=== PATIENT | female | born 1985 | race African-American/Black ===

== ENCOUNTER 2020-11-17 13:18 | Emergency (ER) | payer OTHER ==
[2020-11-17 13:35] VITALS: BMI 20.7
[2020-11-17 14:58] LABS: BASO % 0.4 % (0-2.0); EOS % 2.6 % (0-4.5); HEMOGLOBIN 12.8 GM/dL (10.7-15.3); LYMPH % 34.7 % (8-40); MCH 32.3 pg (25.7-33.7); MCHC 34.7 g/dl (32.0-36.0); MEAN CELL VOLUME 93.3 fl (80-96); MEAN PLT VOLUME 7.4 fl (7.5-11.1); MONO % 8.8 % (3.8-10.2); NEUT % 53.5 % (42.8-82.8); PLATELET COUNT 310 K/MM3 (134-434); RBC 3.97 M/mm3 (3.60-5.2); RDW 13.4 % (11.6-15.6); WHITE BLOOD COUNT 5.2 K/mm3 (4.0-10.0)
[2020-11-17 15:13] LABS: CHLORIDE 106 mmol/L (98-107); SODIUM 139 mmol/L (136-145)
[2020-11-17 15:15] LABS: CALCIUM 8.9 mg/dL (8.5-10.1)
[2020-11-17 15:16] LABS: ALBUMIN 3.6 g/dl (3.4-5.0); ANION GAP 1 MMOL/L (8-16); BLOOD UREA NITROGEN 15.3 mg/dL (7-18); CO2 31 mmol/L (21-32); GLUCOSE,RANDOM 77 mg/dL (74-106)
[2020-11-17 15:19] LABS: CREATININE 1.1 mg/dL (0.55-1.3); SGOT/AST 11 U/L (15-37); SGPT/ALT 17 U/L (13-61)
[2020-11-17 15:20] LABS: TOT PROT 6.6 g/dl (6.4-8.2)
[2020-11-17 15:21] LABS: ALK PHOS 57 U/L (45-117)
[2020-11-17 15:22] LABS: BILIRUBIN,TOTAL 0.4 mg/dL (0.2-1)
[2020-11-17 16:24] VITALS: BP 99/58; PULSE 87; TEMP 98
== END 2020-11-17 15:43 | disposition home or self-care (01) ==
LOC: JER 13:18
DX: R05 Cough (principal); R07.9 Chest pain, unspecified; Z11.52 Encounter for screening for COVID-19
CPT/HCPCS: 36415; 71046-TC-FY; 80053; 82550; 84484; 85025; 93005; 93010; 99285-25; C9803; U0003; U0005